=== PATIENT | female | born 1995 | race Caucasian/White ===

== ENCOUNTER 2017-03-22 22:37 | Emergency (ER) | payer BC ==
--- NOTE | 2017-03-22 23:05 | EDM.PDOC ---
ED HPI GENERAL MEDICAL PROBLEM - General Chief Complaint: ENT Problem Stated Complaint: COLD Time Seen by Provider: 03/22/17 22:50 Source of Information: Reports: Patient, RN History Limitations: Reports: No Limitations - History of Present Illness INITIAL COMMENTS - FREE TEXT/NARRATIVE: 21 yo female presents with 3 days of cold sx's. She has no fever currently, but reports a mild sore throat and mild R ear pain. Has an infrequent cough. No SOB. Onset Date: 03/19/17 Duration: Day(s):, Constant Location: Reports: Face, Chest Severity: Mild Improves with: Reports: Medication Worsens with: Reports: None Context: Reports: Sick Contact Associated Symptoms: Reports: Cough. Denies: Fever/Chills, Nausea/Vomiting, Shortness of Breath Treatments BEER COOLER: Reports: Acetaminophen (4 hrs ago) Throat Pain Score (Numeric/FACES): 7 - Related Data Allergies Allergy/AdvReac Type Severity Reaction Status Date / Time morphine Allergy Anaphylactic Verified 03/22/17 22:59 Shock ED ROS ENT - Review of Systems Review Of Systems: See Below Constitutional: Reports: No Symptoms HEENT: Reports: Ear Pain (mild right), Rhinitis, Throat Pain (mild). Denies: Ear Discharge, Eye Discharge, Nosebleed, Nose Pain, Sinus Problem, Throat Swelling Respiratory: Reports: Cough. Denies: Shortness of Breath, Wheezing, Sputum Cardiovascular: Reports: No Symptoms Endocrine: Reports: No Symptoms GI/Abdominal: Reports: No Symptoms : Reports: No Symptoms Musculoskeletal: Reports: No Symptoms Skin: Reports: No Symptoms Neurological: Reports: No Symptoms ED EXAM, ENT - Physical Exam Exam: See Below Exam Limited By: No Limitations General Appearance: Alert, WD/WN, No Apparent Distress Eye Exam: Bilateral Eye: Normal Inspection Ears: Normal External Exam, Normal Canal, Hearing Grossly Normal, Normal TMs Nose: Normal Inspection, Normal Mucousa, No Blood Mouth/Throat: Normal Inspection, Normal Lips, Normal Oropharynx Head: Atraumatic, Normocephalic Neck: Normal Inspection, Supple Respiratory/Chest: No Respiratory Distress, Lungs Clear, Normal Breath Sounds, No Accessory Muscle Use Cardiovascular: Regular Rate, Rhythm, No Edema GI/Abdominal: Normal Bowel Sounds, Soft, Non-Tender, No Distention Neurological: Alert, Oriented, CN II-XII Intact, Normal Cognition, No Motor/ Sensory Deficits Psychiatric: Normal Affect, Normal Mood Skin: Warm, Dry, Intact, Normal Color, No Rash Lymphatic: No Adenopathy Course - Vital Signs Last Recorded V/S: Last Vital Signs Temp 37.0 C 03/22/17 22:54 Pulse 101 H 03/22/17 22:54 Resp 15 03/22/17 22:54 BP 137/84 03/22/17 22:54 Pulse Ox 97 03/22/17 22:54 Departure - Departure Time of Disposition: 23:05 Disposition: Home, Self-Care 01 Condition: Good Clinical Impression: Viral URI - Discharge Information Referrals: Geoff Lane MD [Primary Care Provider] - Forms: ED Department Discharge Additional Instructions: Acetaminophen for pain or fever sx's. Drink ample fluids and use a cool mist humidifier. Consider a nasal decongestant like Afrin or Neosynephrine. Use Cold Eeze to shorten the course of your cold. Consider use of Mucinex to loosen your secretions. Recheck in the clinic as needed.
== END 2017-03-22 23:07 | disposition home or self-care (01) ==
LOC: JP.ED 22:37
DX: J06.9 Acute upper respiratory infection, unspecified (principal); Z88.5 Allergy status to narcotic agent
CPT/HCPCS: 99283

== ENCOUNTER 2024-09-01 20:45 | Emergency (ER) | payer BC ==
[2024-09-01] MEDS: Lidocaine 1% 5 ML VIAL INJECT ONE (21:45)
[2024-09-01] MEDS: Bacitracin Oint 1 GM U/D Packet TOP ONE (22:05)
== END 2024-09-01 22:05 | disposition home or self-care (01) ==
LOC: JP.ED 20:45
DX: S61.217A Laceration without foreign body of left little finger without damage to nail, initial encounter (principal); Z88.8 Allergy status to other drugs, medicaments and biological substances; Z79.899 Other long term (current) drug therapy; Z86.16 Personal history of COVID-19; Z90.49 Acquired absence of other specified parts of digestive tract; Z87.891 Personal history of nicotine dependence; W45.8XXA Other foreign body or object entering through skin, initial encounter
CPT/HCPCS: 12001; 99282; J2003